=== PATIENT | female | born 2000 | race Caucasian/White ===

== ENCOUNTER 2019-02-21 10:47 | Inpatient (IN) | payer OTHER ==
[~2019-02-21] VITALS: Ht 152.4 cm; Wt 50.8 kg
[~2019-02-21 10:47] MED LIST: ALBUTEROL17 G1 IH; DESPEC DM SYRU473 ML PO; PANADOL CHILDRE80 MG; PHENERGAN12.5 MG/SU; ZITHROMAX200 MG/53 PO; [UNRECOGNIZED DRUG - OTHER]; [UNRECOGNIZED DRUG - OTHER] PO
--- NOTE | 2019-02-21 11:11 | NUR ---
PACIENTE ALERTA Y ORIENTADA EN NAMITA RENUKA ESFERAS, REFIERE 4 VOMITOS COLOR AMARILLO-TRAVIS DESDE ESTA MANANA.
--- NOTE | 2019-02-21 11:52 | NUR ---
EVALUADO POR QUIEN ORDENA TX MEDICO DEL CUAL SE ORIENTA PACIENTE Y FAMILIAR,REFIEREN COMPRENDER. SE COLECTAN MUESTRAS DE LABORATORIOS Y ADMINISTRAN MEDICAMENTOS SURESH ORDEN MEDICA BAJO MEDIDAS ASEPTICAS. PACIENTE NO PRESENTA REACCION ADVERSA.
--- NOTE | 2019-02-21 16:33 | NUR ---
PTE ALERTA Y ORIENTADA X 3 ESFERAS EN VIVI CON BARANDAS ELEVADAS,EN COMAPNIA DE FAMILIAR,AREA DE VENOPUNCION PATENTE Y LORETA DE EDEMA CON FLUIDOS DE MANTENIMIENTO,PENDIENTE A EVALUACION DE DR Martin KOHLI.
[2019-02-26] MEDS ORDERED: INTEGRA PLUS C1 EACH PO (14:24)
[2019-02-26] MEDS ORDERED: LEVOTHYROXINE25 MCG PO (14:24)
== END 2019-02-26 15:21 | disposition home or self-care (01) | DRG 440 ==
LOC: ER 10:47 → MEDJ 21:16
PROVIDERS: ADMIT Internal Medicine
PROC: BW40ZZZ Ultrasonography of Abdomen (ICD-10-PCS; principal; 2019-02-21)
PROC: BG44ZZZ Ultrasonography of Thyroid Gland (ICD-10-PCS; 2019-02-23)
DX: K85.80 Other acute pancreatitis without necrosis or infection (principal); K52.89 Other specified noninfective gastroenteritis and colitis; E04.8 Other specified nontoxic goiter; J02.8 Acute pharyngitis due to other specified organisms

== ENCOUNTER 2022-01-04 12:35 | Emergency (ER) | payer OTHER ==
[~2022-01-04] VITALS: Ht 152.4 cm; Wt 53.5 kg
[~2022-01-04 12:35] MED LIST changes: +INTEGRA PLUS C1 EACH PO; +LEVOTHYROXINE25 MCG PO
== END 2022-01-04 20:27 | disposition home or self-care (01) ==
LOC: ER 12:35
DX: J06.9 Acute upper respiratory infection, unspecified (principal); Z20.822 Contact with and (suspected) exposure to COVID-19; Z91.010 Allergy to peanuts

== ENCOUNTER 2022-12-02 23:10 | Emergency (ER) | payer OTHER ==
[~2022-12-02] VITALS: Ht 152.4 cm; Wt 54.0 kg
[2022-12-03 03:30] LABS: HEMATOCRIT 38.5 % (36.0-45.00); MEAN CELL VOLUME 74.2 fL (80.00-100.00); MEAN CORPUSCULAR HEMOGLOBIN 23.1 pg (27.00-32.0); MEAN CORPUSCULAR HGB CONC 31.1 g/dl (32.0-36.0); PLATELET COUNT 327 K/uL (150-450); RED BLOOD COUNT 5.19 M/uL (4.00-6.00); RED CELL DISTRIBUTION WIDTH 17.1 % (11.5-14.5)
== END 2022-12-03 03:45 | disposition home or self-care (01) ==
LOC: ER 23:10
DX: H81.10 Benign paroxysmal vertigo, unspecified ear (principal)